=== PATIENT | female | born 1945 | race American Indian/Alaskan Native ===

== ENCOUNTER 2019-06-30 12:46 | Outpatient (CLI) | payer MEDICARE, OTHER ==
--- NOTE | 2019-07-01 13:19 | Mammography Report ---
BONE DEXA CLINICAL: Postmenopausal. No comparison. TECHNIQUE: 2 site bone DEXA performed on an Hologic scanner. FINDINGS: The average BMD of the lumbar spine L2-L4 is 1.300g/cm squared with a T score of +1.0 and a Z score of +3.7. The L1 vertebral body was excluded as an outlier. The average total BMD of the right hip is 1.122 g/cm squared with a T score of +0.6and a Z score of + 1.3. IMPRESSION: 1. WHO classification: Normal with average fracture risk based on both spine and right hip measuremen ts. RECOMMENDATION: Clinical correlation and routine screening. Definitions: BMD equal bone mineral density T score = BMD related to peak bone mass of young adult ([place] expressed an standard deviation) Z score = age-matched BMD expressed in SD World health organization (WHO) diagnostic criteria Normal T score greater than equal to 1 standard deviation Osteopenia T score between -1 and -2.4 standard deviation Osteoporosis T score -2.5 standard deviation or below. Note: BMD is not the only risk factor for fracture; also consider factors such as the patient's age, risk of falling, previous osteoporotic fracture, family history of osteoporotic fractures, current sm oker and low body weight. Z scores are not calculated if greater than 80 years of age. Signer Name: Manoj Mcgarry MD Signed: 07/01/2019 1:15 PM Workstation Name: [id number]
== END 2019-06-30 12:47 | disposition home or self-care (01) ==
LOC: SPVWC 12:46
PROVIDERS: ATTEND Internal Medicine
DX: Z13.820 Encounter for screening for osteoporosis (principal); Z78.0 Asymptomatic menopausal state
CPT/HCPCS: 77080